=== PATIENT | male | born 1970 | race Caucasian/White ===

== ENCOUNTER → 2016-09-08 | Outpatient (CLI) | payer OTHER ==
[~2016-09-08] MED LIST: BENZ100C84 PO; KETO10TA PO; NAPR1TAB9 PO; OXYC-57 PO; Proair HFA INH
--- NOTE | 2016-09-08 13:22 | DIAGNOSTIC IMAGING REPORT ---
ORBIT RADIOGRAPHS 3 VIEWS HISTORY: pre-MRI screening. COMPARISON: None. FINDINGS: There are no radiopaque foreign bodies identified within the orbits. IMPRESSION: No radiopaque foreign bodies identified within the orbits. Electronically signed by: Fco Escobar M.D. 09/08/2016 1:21 PM Dictated Date/Time: 09/08/2016 1:20 PM
--- NOTE | 2016-09-08 14:41 | DIAGNOSTIC IMAGING REPORT ---
MRI OF THE BRAIN WITHOUT CONTRAST IAC PROTOCOL CLINICAL HISTORY: Right asymmetrical sensorineural hearing loss. COMPARISON STUDY: No previous studies for comparison. TECHNIQUE: Utilizing 1.5 Marjorie magnet, multiplanar, multi echo imaging of the brain was performed without IV contrast with thin cut imaging through the internal auditory canals. The study was not completed as postcontrast imaging was not performed due to patient anxiety during the study. FINDINGS: There are no areas of restricted diffusion. No acute intracranial hemorrhage, midline shift or mass effect is present. Brain volume is normal. Ventricular system is normal. Basilar cisterns are patent. Flow-voids for the major intracranial vessels are present. There no extra axial collections. No areas of parenchymal signal abnormality are identified. No mass is identified on this unenhanced exam. The semicircular canals are intact. No cerebellopontine angle mass is identified as unenhanced exam. No mass is identified within the right internal auditory canal. Note is made of a vessel which extends into the right internal auditory canal. This may reflect the right anterior inferior cerebellar artery. IMPRESSION: 1. No acute intracranial findings. 2. No mass identified within the internal auditory canals although post contrast imaging was not performed as the patient could not complete the study. 3. Vessel extending into the right internal auditory canal which may reflect the right anterior inferior cerebellar artery. This is of uncertain clinical significance and may be seen in asymptomatic patients. Electronically signed by: Fco Escobar M.D. 09/08/2016 2:40 PM Dictated Date/Time: 09/08/2016 2:15 PM
== END | disposition home or self-care (01) ==
LOC: C.MRI 12:36
PROVIDERS: ATTEND Physician Assistant
DX: H90.41 Sensorineural hearing loss, unilateral, right ear, with unrestricted hearing on the contralateral side (principal)

== ENCOUNTER → 2017-01-05 | Outpatient (CLI) | payer OTHER ==
[~2017-01-05] MED LIST changes: -BENZ100C84 PO
[2017-01-05 16:38] LABS: BASO ABS # 0.06 K/uL (0-0.2); COMPLETE YES; EOS % 1.8 %; HEMATOCRIT 44.8 % (42-52); IG% 0.3 %; LYMPH ABS # 2.17 K/uL (1.2-3.4); MEAN CELL VOLUME 91.1 fL (80-100); MEAN CORPUSCULAR HEMOGLOBIN 32.5 pg (25-34); MEAN CORPUSCULAR HGB CONC 35.7 g/dl (32-36); MONO % 8.4 %; NEUT % 53.5 %; PLATELET COUNT 314 K/uL (130-400); RED BLOOD COUNT 4.92 M/uL (4.7-6.1)
[2017-01-05 16:55] LABS: BLOOD UREA NITROGEN 14 mg/dl (7-18); BUN/CREATININE RATIO 14.5 (10-20); CARBON DIOXIDE 27 mmol/L (21-32); CHLORIDE 104 mmol/L (98-107); CREATININE 0.99 mg/dl (0.60-1.40); GLUCOSE 86 mg/dl (70-99); POTASSIUM 3.8 mmol/L (3.5-5.1); SODIUM 137 mmol/L (136-145)
== END | disposition home or self-care (01) ==
LOC: C.LABBC 12:50
PROVIDERS: ATTEND Orthopaedic Surgery
DX: Z01.812 Encounter for preprocedural laboratory examination (principal); S43.015D Anterior dislocation of left humerus, subsequent encounter; X58.XXXD Exposure to other specified factors, subsequent encounter

== ENCOUNTER → 2017-02-09 | Day surgery (SDC) | payer OTHER ==
[2017-01-05 08:36] VITALS: Ht 177.8 cm; Wt 97.7 kg
[~2017-02-09] VITALS: Ht 177.8 cm; Wt 97.7 kg
[~2017-02-09] MED LIST changes: +ATROPINE SULFATE 0.1 MG/ML 5ML SYR IV PRN; +BUPIVACAINE/EPINEPHRINE 0.25% 1:200,000 30 ML VIAL ONE; +CEFAZOLIN 2000 MG/60 ML D5W IV SCH; +DEXAMETHASONE SOD INJ 4 MG/ML VIAL ONE; +EpHEDrine SULFATE INJ 50 MG/ML AMP IV PRN; +EpINEphrine INJ 1MG/ML AMP 1 MG/ML AMP ONE; +FENTANYL CITRATE INJ 50 MCG/1 ML 2 ML VIAL ONE; +HYDROmorphone INJ 1 MG/ML SYR IV PRN; +LABETALOL HCL IV 5 MG/ML 20ML IV PRN; +LACTATED RINGER'S 1000ML 1,000 ML IV SCH; +LIDOCAINE HCL 1% MPF 2 ML VIAL ONE; +LIDOCAINE HCL 2% 2 ML VIAL (20MG/ML) ONE; +MIDAZOLAM HCL 1 MG/ML 2ML VIAL ONE; +ONDANSETRON INJ 2 MG/ML 2 ML VIAL IV PRN; +ONDANSETRON INJ 2 MG/ML 2 ML VIAL ONE; +OXYCODONE/ACETAMINOPHEN 5-325 TAB PO PRN; +PROMETHAZINE HCL INJ 12.5 MG in SODIUM CHLORIDE 0.9% 50ML 50 ML IV PRN; +PROPOFOL IV EMULSION 10 MG/ML 20 ML VIAL IV ONE; -Proair HFA INH; +ROPIVACAINE 0.5% 5 MG/ML 30 ML VIAL ONE; +SODIUM CHLORIDE 0.9% 1000ML 1,000 ML IV SCH
--- NOTE | 2017-02-09 09:56 | History & Physical Bridge - SC ---
H&P Re-Evaluation Bridge Note: I have examined the patient, reviewed the History & Physical and in the interval since the performance of the History & Physical I have noted the following changes of clinical significance: No changes noted
--- NOTE | 2017-02-09 15:37 | [facility] Post Operative Brief Note ---
Immediate Operative Summary Operative Date Feb 09, 2017. Pre-Operative Diagnosis Left Shoulder Anterior Dislocation of Joint, Pain Post-Operative Diagnosis Same Procedure(s) Performed rotator cuff repair, acromioplasty, biceps tenodesis, lysis of adhesions Surgeon Dr. Huong Gill Travel Registered Nurse Nicu Surgeon(s) Marcio Paredes PA-C Estimated Blood Loss 5cc Findings as above Specimens None Complication(s) None Disposition Recovery Room / PACU
--- NOTE | 2017-02-09 15:54 | Discharge Instructions-SurgCtr ---
Discharge Instructions Date of Service Feb 09, 2017. Visit Reason for Visit: Left Shoulder Anterior Dislocation Of Joint, Pain Discharge Discharge Diagnosis / Problem: SAME ABOVE Discharge Goals Goal(s): Decrease discomfort, Improve function Activity Recommendations Activity Limitations: as noted below Lifting Limitations: until after follow-up appointment Shower/Bathe: tomorrow Anesthesia . Post Anesthesia Instructions: If you have had General Anesthesia or IV Sedation: * Do not drive today. * Resume driving when surgeon permits. * Do not make important decisions or sign legal documents today. * Call surgeon for: 1. Temperature elevations greater than 101 degrees F. 2. Uncontrollable pain. 3. Excessive bleeding. 4. Persistent nausea and vomiting. 5. Medication intolerance (nausea, vomiting or rash). * For nausea and vomiting use only clear liquids such as: tea, soda, bouillon until nausea subsides, then gradually increase diet as tolerated. * If you have any concerns or questions, call your surgeon's office. If physician is unavailable and it is an emergency, call 911 or go to the nearest emergency room. . Instructions / Follow-Up Instructions / Follow-Up MEDICATIONS: * Resume previous medications unless instructed otherwise by your surgeon. * Always take pain medication on a full stomach or with food to avoid upset stomach. * Do not drink alcohol or drive while taking narcotics. * Ibuprofen or Tylenol may be taken if narcotic not needed. SPECIAL CARE INSTRUCTIONS: __ None _X_ Keep extremity elevated and iced x 48 hours; apply ice 20-30 minutes 8-10 times/day. May remove at night. __ Sling __24 hrs/day __ Remove at night _X_ Shoulder Immobilizer (MAY REMOVE AFTER 48 HOURS ONLY TO SHOWER AND FOR THERAPY) _X_ 24 hrs/day __ Remove at night _X_ Dressing __ Maintain until seen in office, may shower with plastic over site _X_ Remove dressings in 24-48 hours and then may shower _X_ Cover incisions with band-aids after showering __ Do not remove steri-strips Call physician if chills or temperature rises above 102 degrees or pain unrelieved by prescribed pain medications at . . Diet Recommendations Home Diet: no limitations Fluid Restriction: None Procedures Procedures Performed: rotator cuff repair, acromioplasty, biceps tenodesis, lysis of adhesions Pending Studies Studies pending at discharge: no Work Instructions Return To Work: after follow-up Lifting Limitations: NO LIFTINTG WITH LEFT ARM Medical Emergencies . Who to Call and When: Medical Emergencies: If at any time you feel your situation is an emergency, please call 911 immediately. . Non-Emergent Contact Non-Emergency issues call your: Primary Care Provider Call Non-Emergent contact if: you have a fever, temperature is above 101.5 . . "Provider Documentation" section prepared by Yosef Paredes. .
--- NOTE | 2017-02-09 15:55 | OPERATIVE REPORT ---
DATE OF OPERATION: 02/09/2017 PREOPERATIVE DIAGNOSES: Anterior superior rotator cuff tear with medially subluxated biceps tendon and anterior labral tear following anterior shoulder dislocation. POSTOPERATIVE DIAGNOSIS: Anterior superior rotator cuff tear with medially subluxated biceps tendon labral tear but development of adhesive capsulitis. PROCEDURE: Left shoulder diagnostic arthroscopy with manipulation under anesthesia, extensive debridement, lysis of adhesions, acromioplasty, anterior superior rotator cuff repair including the entire supraspinatus and upper border subscapularis with arthroscopic biceps tenodesis. SURGEON: Dr. Neville Gill. PIPE INSULATOR HELPER: Moose Paredes PA-C, whose assistance was necessary for positioning the arm and helping with instrumentation. ANESTHESIA: General with a left interscalene nerve block. COMPLICATIONS: None. CONDITION: Stable to PACU. NOTE: This case took increased time and difficulty given the nature of the injury. Significant time was spent debriding away damaged tissue and the entire supraspinatus and the subscapularis had to be repaired separately. The case took about twice as long as a standard rotator cuff repair. INDICATIONS: Samson is a 46-year-old male who sustained an anterior dislocation of his shoulder about 6 weeks ago. When I saw him in the office, I treated him conservatively for 3 weeks, but when he returned after 3 weeks he was still very sore and tight in his shoulder. I sent him for an MRI and the MRI showed an anterior superior rotator cuff tear with large Hill-Sachs lesion, a medially subluxated biceps tendon and Bankart tear. He elected to undergo arthroscopy. DESCRIPTION OF PROCEDURE: On 02/09/2017, he arrived at [facility] for the above procedure. He was seen in the preoperative holding area and the operative extremity was identified and signed. He was given a preoperative antibiotic and a left interscalene nerve block. He was taken back to the operating room, laid on the table in supine position and put under general anesthesia. He was then put into the beachchair position. The left shoulder was prepped and draped in sterile fashion. Time-out was done and the patient and operative extremity was properly identified. On preoperative physical examination, he had about 90 degrees of abduction, but he only had about 40 degrees of external rotation with the arm abducted. He only about 20 degrees of external rotation with the arm at the side. A gentle manipulation was done under anesthesia then was felt insertion of the arthroscope. The scope was then placed in the posterior portal, diagnostic arthroscopy showed no cartilage damage to the humeral head or the glenoid except for a large posterior superior Hill-Sachs lesion. There was tearing of the anterior inferior labrum off the glenoid, but there was also tearing of the capsule from the manipulation. The biceps tendon was subluxated medially. There was a tear of the upper border of subscapularis and a tear of the entire supraspinatus. The infraspinatus and teres minor were intact. An anterior portal was made. A shaver was used to start debridement of some of the intra-articular structures. The labrum was debrided back and the unstable ligamentous tissue was debrided back. An ablator was then used to do a lysis of adhesions of the middle and anterior inferior glenohumeral ligaments. A shaver was used to debride back any unstable tissue. The biceps tendon was then arthroscopically tenotomized for later tenodesis. The scope was then put into the subacromial space. A shaver was used to do a complete subacromial and subdeltoid bursectomy. Significant time was spent debriding out the bursitis. An ablator was used to tease the coracoacromial ligament off the undersurface of the acromion and a 5-0 maribel was used to complete an acromioplasty of a Bigliani type 2 acromion. Attention was turned to the rotator cuff. An additional anterolateral portal was made and Maureen cannulas were placed in each of the lateral portals. There was a crescent-shaped tear of the entire supraspinatus. Decision was then made to fix the upper border of subscapularis first. The scope was placed back into the glenohumeral joint. A third Maureen cannula was placed in the anterior portal. A 4.75 mm BioComposite SwiveLock suture anchor loaded with fibertapes was placed on the lesser tuberosity. The 2 tapes were passed through the tendon with a 25 degree suture lasso. The 2 tapes were then brought down to a single 4.75 mm BioComposite SwiveLock suture anchor to complete a knotless modified SpeedBridge repair of the subscapularis. The scope was placed back into the subacromial space, and long head of the biceps tendon was tagged with a FiberLink for later tenodesis. The greater tuberosity was then prepared with a ring curette and a microfracture. The supraspinatus was then fixed with an Arthrex SpeedBridge configuration using 4.75 mm BioComposite SwiveLock suture anchors in FiberTapes. The tapes were passed through the tendon at the anticipated articular margin and brought down to lateral row SwiveLock suture anchors. The biceps tendon was incorporated into the anterior medial anchor to complete an arthroscopic biceps tenodesis. Multiple pictures were taken. The scope was placed back into the glenohumeral joint and the articular margins of the supraspinatus and the subscapularis had been restored. Multiple pictures were taken. Arthroscopic instruments were removed from the shoulder. Portal sites were closed with 3-0 nylon. He was then placed in a soft dressing and an abduction arm sling. He was then extubated, transferred to a litter and taken to the postanesthesia care unit in stable condition. He tolerated the procedure well. I attest to the content of the Intraoperative Record and any orders documented therein. Any exception s are noted below.
[2017-02-09] MEDS: FENTANYL CITRATE INJ 50 MCG/1 ML 2 ML VIAL IV PRN ×3 (16:03→16:23)
[2017-02-09 17:00] VITALS: TEMP 36.1
--- NOTE | 2017-02-09 17:25 | Anesthesia Progress Nt - [facility] ---
Anesthesia Post Op Note Date & Time Feb 09, 2017 at 17:22 Vital Signs Pain Intensity: 3 Vital Signs Past 12 Hours Date Time Temp Pulse Resp B/P (MAP) Pulse Ox O2 Delivery O2 Flow Rate FiO2 02/09/17 17:00 36.1 69 16 145/92 (109) 96 Room Air 02/09/17 16:56 138/94 02/09/17 16:53 75 12 94 02/09/17 16:53 67 12 02/09/17 16:52 147/100 02/09/17 16:51 36.1 70 17 147/100 96 Room Air 02/09/17 16:43 69 26 02/09/17 16:43 70 26 97 02/09/17 16:41 156/116 02/09/17 16:39 156/109 02/09/17 16:38 68 21 02/09/17 16:38 67 21 95 02/09/17 16:36 156/101 02/09/17 16:33 67 14 02/09/17 16:33 66 14 94 02/09/17 16:31 155/102 02/09/17 16:28 72 15 02/09/17 16:28 73 15 94 02/09/17 16:26 161/106 02/09/17 16:23 68 17 02/09/17 16:23 68 17 95 02/09/17 16:21 162/101 02/09/17 16:18 71 21 02/09/17 16:18 73 21 95 02/09/17 16:16 153/107 02/09/17 16:13 60 7 02/09/17 16:13 59 7 100 02/09/17 16:11 149/103 02/09/17 16:08 63 17 02/09/17 16:08 64 17 100 02/09/17 16:06 155/97 02/09/17 16:03 67 13 02/09/17 16:03 67 13 100 02/09/17 16:01 156/103 02/09/17 15:58 70 17 100 02/09/17 15:58 74 17 02/09/17 15:56 157/103 02/09/17 15:53 64 12 02/09/17 15:53 64 12 100 02/09/17 15:51 150/109 02/09/17 15:50 154/103 02/09/17 15:49 178/114 02/09/17 15:48 75 94 02/09/17 15:48 75 02/09/17 15:48 36.1 78 16 178/107 98 Mask 8 02/09/17 13:28 0 02/09/17 13:27 58 13 100 02/09/17 13:27 59 02/09/17 13:26 128/82 02/09/17 13:22 59 10 99 02/09/17 13:22 58 02/09/17 13:21 140/92 02/09/17 13:17 69 28 99 02/09/17 13:17 67 02/09/17 13:16 141/84 02/09/17 13:12 58 02/09/17 13:12 61 15 100 02/09/17 13:11 126/88 02/09/17 13:09 53 02/09/17 13:09 53 12 100 02/09/17 13:06 149/94 02/09/17 13:04 61 02/09/17 13:04 58 11 100 02/09/17 13:01 126/79 02/09/17 12:59 55 02/09/17 12:59 54 0 98 02/09/17 12:56 146/89 02/09/17 12:54 73 15 100 02/09/17 12:54 73 02/09/17 12:51 148/98 02/09/17 12:49 65 02/09/17 12:49 65 15 100 02/09/17 12:46 146/92 02/09/17 12:44 58 0 02/09/17 12:39 62 0 02/09/17 12:34 55 0 02/09/17 12:29 57 0 02/09/17 12:24 57 0 02/09/17 12:19 55 0 02/09/17 12:14 60 0 02/09/17 12:09 73 0 02/09/17 10:36 36.5 82 16 142/95 (111) 98 Room Air Notes Mental Status: alert / awake / arousable, participated in evaluation Pt Amnestic to Procedure: Yes Nausea / Vomiting: adequately controlled Pain: adequately controlled Airway Patency, RR, SpO2: stable & adequate BP & HR: stable & adequate Hydration State: stable & adequate Anesthetic Complications: no major complications apparent Pt awake, doing well. BP better after patient able to urinate. Pt with c/o chest wall pain on the left but not new. He said that chest wall pain (sore, not pressure like) is not new and has been there since he dislocated the left shoulder. No other pain, no radiation of pain. 12 lead EKG obtained, which shows sinus rhythm in the 60s. Discussed with patient and if he starts having other kind of chest pain at home to come to ED for work up. Otherwise patient is doing well and ready for d/c.
[2017-02-09 17:40] VITALS: BP 141/89; PULSE 72; O2SAT 96
== END | disposition home or self-care (01) ==
LOC: X.SURG 10:24
PROVIDERS: ATTEND Orthopaedic Surgery
DX: S46.012A Strain of muscle(s) and tendon(s) of the rotator cuff of left shoulder, initial encounter (principal); M75.02 Adhesive capsulitis of left shoulder; X58.XXXA Exposure to other specified factors, initial encounter

== ENCOUNTER → 2017-02-17 | Outpatient (CLI) | payer OTHER ==
[~2017-02-17] MED LIST changes: -ATROPINE SULFATE 0.1 MG/ML 5ML SYR IV PRN; -BUPIVACAINE/EPINEPHRINE 0.25% 1:200,000 30 ML VIAL ONE; -CEFAZOLIN 2000 MG/60 ML D5W IV SCH; -DEXAMETHASONE SOD INJ 4 MG/ML VIAL ONE; -EpHEDrine SULFATE INJ 50 MG/ML AMP IV PRN; -EpINEphrine INJ 1MG/ML AMP 1 MG/ML AMP ONE; -FENTANYL CITRATE INJ 50 MCG/1 ML 2 ML VIAL ONE; -HYDROmorphone INJ 1 MG/ML SYR IV PRN; -LABETALOL HCL IV 5 MG/ML 20ML IV PRN; -LACTATED RINGER'S 1000ML 1,000 ML IV SCH; -LIDOCAINE HCL 1% MPF 2 ML VIAL ONE; -LIDOCAINE HCL 2% 2 ML VIAL (20MG/ML) ONE; -MIDAZOLAM HCL 1 MG/ML 2ML VIAL ONE; -ONDANSETRON INJ 2 MG/ML 2 ML VIAL IV PRN; -ONDANSETRON INJ 2 MG/ML 2 ML VIAL ONE; -OXYCODONE/ACETAMINOPHEN 5-325 TAB PO PRN; -PROMETHAZINE HCL INJ 12.5 MG in SODIUM CHLORIDE 0.9% 50ML 50 ML IV PRN; -PROPOFOL IV EMULSION 10 MG/ML 20 ML VIAL IV ONE; -ROPIVACAINE 0.5% 5 MG/ML 30 ML VIAL ONE; -SODIUM CHLORIDE 0.9% 1000ML 1,000 ML IV SCH
--- NOTE | 2017-02-17 16:32 | DIAGNOSTIC IMAGING REPORT ---
LEFT UPPER EXTREMITY VENOUS DOPPLER HISTORY: Left arm PAIN Swelling, surgery LAST MONDAY COMPARISON STUDY: None. FINDINGS: The left internal jugular vein is patent. There is normal flow within the left subclavian vein. There is normal flow and compressibility within the left axillary, basilic, brachial, radial, ulnar, and visualized cephalic veins. Soft tissue edema within the left upper arm at the level of the biceps. IMPRESSION: No DVT within the left upper extremity. Electronically signed by: Paul Altman M.D. 02/17/2017 4:31 PM Dictated Date/Time: 02/17/2017 4:30 PM
== END | disposition home or self-care (01) ==
LOC: C.ULTR 15:19
PROVIDERS: ATTEND Orthopaedic Surgery
DX: R60.0 Localized edema (principal); M79.602 Pain in left arm